=== PATIENT | female | born 1970 | race Caucasian/White ===

== ENCOUNTER 2016-08-13 15:46 | Outpatient (CLI) ==
--- NOTE | 2016-08-13 22:44 | DI ---
Examination: Six radiographic images of the cervical spine. Comparison: None available. Reason for study: Neck pain. FINDINGS: There is reversal of the cervical lordotic curve. The vertebral body heights and interve rtebral body disc space heights are well maintained. Calcific densities seen anterior to the C3 end plate and C5-6 disc interspace are likely degenerative. No abnormal prevertebral soft tissue swell ing. Mild osseous narrowing in the foramina may be accentuated by positioning. The dens appears in tact on the Hall view. Impression: 1. No obvious fracture or listhesis. Calcific densities anterior to the vertebral bodies are likel y degenerative, although avulsion fractures cannot be completely ruled out. If clinical suspicion i s high for a cervical spine injury, MRI may be performed. 2. Reversal of the lordotic curve is likely degenerative. Image interpretation was faxed to [facility] at 2240 hours on the day of exam.
--- NOTE | 2016-08-13 22:46 | DI ---
Examination: Three radiographic images of the right shoulder. Comparison: None available. Reason for study: Right shoulder pain. FINDINGS: The no acute fracture or dislocation. The humeral head articulates to the bony glenoid. The acromioclavicular joint space is well maintained. Impression: No acute fracture or dislocation in the right shoulder.
== END 2016-08-13 15:47 | disposition home or self-care (01) ==
LOC: RAD 15:46
PROVIDERS: ATTEND Nurse Practitioner
DX: M25.511 Pain in right shoulder (principal); M54.2 Cervicalgia